=== PATIENT | male | born 1950 | race Asian ===

== ENCOUNTER 2019-10-15 09:07 | Emergency (ER) | payer SELFPAY ==
[~2019-10-15] VITALS: Ht 172.7 cm; Wt 87.1 kg
[2019-10-15 09:19] VITALS: Ht 172.7 cm; Wt 87.1 kg
[2019-10-15 09:55] VITALS: BP 142/86
== END 2019-10-15 09:55 | disposition home or self-care (01) ==
LOC: ED 09:07
DX: S61.211D Laceration without foreign body of left index finger without damage to nail, subsequent encounter (principal); I10 Essential (primary) hypertension; E78.00 Pure hypercholesterolemia, unspecified; W54.0XXD Bitten by dog, subsequent encounter